=== PATIENT | female | born 1970 | race Caucasian/White ===

== ENCOUNTER 2020-05-10 16:47 | Emergency (ER) | payer OTHER ==
[2020-05-10 17:08] VITALS: BP 162/94; PULSE 107; O2SAT 100
[2020-05-10] MEDS ORDERED: TORAdol 30 mg Injection IM ONE (17:17)
[2020-05-10] MEDS ORDERED: NORCO 5/325 MG PO ONE ×2 (17:17→19:04)
[2020-05-10] MEDS ORDERED: TORAdol 30 mg Injection ONE (17:22)
[2020-05-10] MEDS ORDERED: NORCO 5/325 MG ONE ×2 (17:23→19:06)
--- NOTE | 2020-05-10 18:18 | ERPHSYRPT ---
- History of Present Illness Source: patient Exam Limitations: other (Poor historian) Patient Subjective Stated Complaint: My fingers got caught in a crossbow string when shooting it less than an hour ago Triage Nursing Assessment: Aaox3, ambualtory, tearful, States got fingers caught in crossbow string when shooting it less than an hour ago. Bleeding from distal end of left 3rd finger noted. C/o pain to 1-4 fingers left hand. Denies other injuries. All rings removed from fingers. Some swelling, abrasions, and bruising noted to fingers. Distal neuro/vascular intact. Physician History: 49 yo wf complains of L hand digits 2-4 pain after getting caught in crossbow. Pt is R handed and denies other/previous injury. Tetanus is UTD. Occurred: just prior to arrival Method of Injury: direct blow Quality: constant Severity of Pain-Max: severe Severity of Pain-Current: severe Extremities Pain Location: 2nd finger: left, 3rd finger: left, 4th finger: left Modifying Factors: Improves With: movement Associated Symptoms: none Hx Tetanus, Diphtheria Vaccination/Date Given: Yes Hx Influenza Vaccination/Date Given: Yes Travel Risk - International Travel Have you traveled outside of the country in past 3 weeks: No - Coronavirus Screening Are you exhibiting any of the following symptoms?: No Close contact with a COVID-19 positive Pt in past 14-21 Days: No - Review of Systems Constitutional: No Symptoms Eyes: No Symptoms Ears, Nose, & Throat: No Symptoms Respiratory: No Symptoms Cardiac: No Symptoms Abdominal/Gastrointestinal: No Symptoms Genitourinary Symptoms: No Symptoms Skin: No Symptoms Neurological: No Symptoms Psychological: No Symptoms Endocrine: No Symptoms Hematologic/Lymphatic: No Symptoms Immunological/Allergic: No Symptoms - Past Medical History Neurological History: Migraines Cardiac History: High Cholesterol Respiratory History: COPD Endocrine Medical History: No Pertinent History Musculoskeletal History: Arthritis, Fibromyalgia - Past Surgical History Other Surgical History: breast biopsies, lap quinten, hysterectomy - Social History Smoking Status: Never smoker Patient Lives Alone: No Significant Family History: no pertinent family hx - Female History Hx Now: No - Nursing Vital Signs Nursing Vital Signs: Initial Vital Signs Temperature 97.9 F 05/10/20 16:57 Pulse Rate 107 H 05/10/20 16:57 Respiratory Rate 20 05/10/20 16:57 Blood Pressure 162/94 05/10/20 16:57 O2 Sat by Pulse Oximetry 100 05/10/20 16:57 Pain Scale Pain Intensity 5 - Physical Exam General Appearance: no apparent distress (In pain) Eyes, Ears, Nose, Throat Exam: normal ENT inspection, TMs normal, pharynx normal Neck Exam: normal inspection, non-tender, supple, full range of motion, No Brudzinski, No Kernig's, No meningismus Cardiovascular/Respiratory Exam: normal breath sounds, regular rate/rhythm, heart sounds normal Abdominal Exam: non-tender, soft Back Exam: normal inspection, normal range of motion, No vertebral tenderness Shoulder Exam: normal inspection, non-tender, no evidence of injury, swelling Elbow/Forearm Exam: normal inspection, non-tender Wrist Exam: normal inspection, non-tender, no evidence of injury Hand Exam: abrasions (Pt has dorsal abrasions of digits 2-4 w ttp most marked on 3rd digit/Mild edema of 3rd digit/Good distal capillary return and sensation of all digits) Neuro/Tendon Exam: normal sensation, normal motor functions, normal tendon functions, responds to pain, no evidence tendon injury Mental Status Exam: alert, oriented x 3, cooperative Skin Exam: normal color, warm, dry SpO2 Interpretation: normal SpO2: 100 O2 Delivery: Room Air - Course Nursing assessment & vital signs reviewed: Yes - Radiology Exams Hand X-ray Interpretation: Interpreted by me (L 3rd digit distal avulsion fx) Ordered Tests: Active Orders 24 hr Category Date Time Status HAND (MINIMUM 3 VIEWS) Stat Exams 05/10/20 17:46 Taken Medication Summary Discontinued Medications Generic Name Dose Route Start Last Admin Trade Name Pascale PRN Reason Stop Dose Admin Hydrocodone Bitart/Acetaminophen 2 tab 05/10/20 17:17 05/10/20 17:25 Butler 5/325 Mg PO 05/10/20 17:18 2 tab STAT ONE Administration Hydrocodone Bitart/Acetaminophen Confirm 05/10/20 17:23 Butler 5/325 Mg Administered 05/10/20 17:24 Dose 2 tab .ROUTE .STK-MED ONE Hydrocodone Bitart/Acetaminophen 2 tab 05/10/20 19:04 05/10/20 19:07 Butler 5/325 Mg PO 05/10/20 19:05 2 tab SENT HOME W/ PATIENT ONE Administration Hydrocodone Bitart/Acetaminophen Confirm 05/10/20 19:06 Butler 5/325 Mg Administered 05/10/20 19:07 Dose 2 tab .ROUTE .STK-MED ONE Hydromorphone HCl 1 mg 05/10/20 18:39 05/10/20 18:51 Hydromorphone 1 Mg/Ml Injection IM 05/10/20 18:40 1 mg STAT ONE Administration Hydromorphone HCl Confirm 05/10/20 18:50 Hydromorphone 1 Mg/Ml Injection Administered 05/10/20 18:51 Dose 1 mg .ROUTE .STK-MED ONE Ketorolac Tromethamine 60 mg 05/10/20 17:17 05/10/20 17:25 Toradol 30 Mg Injection IM 05/10/20 17:18 60 mg STAT ONE Administration Ketorolac Tromethamine Confirm 05/10/20 17:22 Toradol 30 Mg Injection Administered 05/10/20 17:23 Dose 30 mg .ROUTE .STK-MED ONE - Progress Progress: improved Progress Note: 05/10/20 18:42 60mg IM Toradol/Butler 5 po x2 Long aluminium splint L 3rd digit per nursing/NVI 1mg IM Dilaudid Abrasions cleansed w Hibiclens per nursing Counseled pt/family regarding: need for follow-up, rad results - Departure Departure Disposition: Home Clinical Impression: Fracture, finger, distal phalanx Condition: Stable Critical Care Time: No Referrals: ROBERT ROSENTHAL NP [Primary Care Provider] - ANGEL - AASHISH SUAREZ NP [NON-STAFF PHY W/O PRIVILEGES] - Instructions: Finger Fracture (DC) Additional Instructions: Ice for 12-24 hours Pain meds as needed Follow up in the orthopedic clinic 8-10:00 M-Fr Prescriptions: Hydrocodone/Acetaminophen [Hydrocodone-Acetamin 10-325 mg] 1 each PO Q4H PRN PRN #6 tablet MDD 3 tabs PRN Reason: Pain Hydrocodone/Acetaminophen [Hydrocodone-Acetamin 10-325 mg^^^] 1 each PO Q4HPRN PRN #7 tablet MDD 3 tabs per day PRN Reason: Pain Ketorolac Tromethamine [Toradol] 10 mg PO TID PRN #10 tablet
[2020-05-10] MEDS ORDERED: Hydromorphone 1 mg/ml Injection IM ONE (18:39)
[2020-05-10] MEDS ORDERED: Hydromorphone 1 mg/ml Injection ONE (18:50)
--- NOTE | 2020-05-11 08:58 | XRAY ---
Indication: Pain following injury. Comparison: None 3 view left hand demonstrates minimal degenerative changes of all IP joints and mild 3rd finger soft tissue swelling/edema. No other bony, articular, or soft tissue abnormalities.
== END 2020-05-10 19:10 | disposition home or self-care (01) ==
LOC: ED 16:47
DX: S62.633A Displaced fracture of distal phalanx of left middle finger, initial encounter for closed fracture (principal); W23.0XXA Caught, crushed, jammed, or pinched between moving objects, initial encounter; M79.645 Pain in left finger(s); S60.413A Abrasion of left middle finger, initial encounter; S60.042A Contusion of left ring finger without damage to nail, initial encounter; J44.9 Chronic obstructive pulmonary disease, unspecified
CPT/HCPCS: 73130; 96372; 99284; J1170; J1885; A9270-GY

== ENCOUNTER 2020-11-17 15:38 | Emergency (ER) | payer OTHER ==
[2020-11-17 16:37] LABS: Absolute Neutrophil Ct (ANC) 2.87 (1.4-6.9); BASOPHIL % 0.3 % (0.0-0.4); Basophil (Absolute #) 0.02 (0-0.4); Eosinophil % 1.4 % (0.00-5.0); Eosinophil (Absolute #) 0.08 (0-0.5); Hematocrit 38.4 % (35-47); Hemoglobin 13.1 gm/dl (12.0-16.0); Lymphocytes % 41.5 % (24.0-44.0); Mean Cell Volume 92.8 fl (78-100); Mean Corpuscular Hemoglobin 31.6 pg (26-32); Mean Corpuscular Hgb Concent. 34.1 g/dl (32-36); Monocyte (Absolute #) 0.41 (0.0-1.3); Monocytes % 7.1 % (0.0-12.0); Neutrophil % 49.7 % (36.0-66.0); Platelet Count 236 K/mm3 (150-450); Red Blood Count 4.14 M/mm3 (4.1-5.4); Red Cell Distribution Width 12.3 % (11.5-14.0); White Blood Count 5.8 K/mm3 (4.0-10.5)
[2020-11-17 16:56] LABS: ALBUMIN 4.7 g/dL (3.5-5.0); ALKALINE PHOSPHATASE 94 U/L (38-126); ANION GAP 14.9 MEQ/L (5-15); BLOOD UREA NITROGEN 14 mg/dL (7-17); CHLORIDE 105 mmol/L (98-107); Calcium 9.7 mg/dL (8.4-10.2); Carbon Dioxide 23 mmol/L (22-30); Creatinine 1 0.56 mg/dL (0.52-1.04); EST GLOMERULAR FILTRATION RATE > 60.0 ML/MIN; ETHYL ALCOHOL < 10 mg/dL (0-10); Glucose 111 mg/dL (74-106); Potassium 3.7 mmol/L (3.5-5.1); SGOT/AST 26 U/L (14-36); SGPT/ALT 19 U/L (0-35); SODIUM 139 mmol/L (137-145); Total Protein 7.6 g/dL (6.3-8.2)
--- NOTE | 2020-11-17 17:00 | XRAY ---
Indication: Lethargy. Comparison: None Portable chest demonstrates probable 1.5 cm right apical calcified granuloma. Remaining heart, lungs, and bony thorax normal.
[2020-11-17 17:46] LABS: Appearance SLIGHTLY CLOUDY (CLEAR); Bilirubin NEGATIVE (NEGATIVE); Blood NEGATIVE Ery/ul (0-5); Epithelial Cells RARE /HPF (FEW); Glucose NEGATIVE (NEGATIVE); Ketones NEGATIVE (NEGATIVE); Leukocyte Esterase NEGATIVE (NEGATIVE); Mucus SLIGHT /HPF (NEGATIVE); Nitrite NEGATIVE (NEGATIVE); Protein,Urine Dip NEGATIVE (Negative); Urobilinogen 4 mg/dL (0-1)
--- NOTE | 2020-11-17 17:54 | ERPHSYRPT ---
- History of Present Illness Source: patient Exam Limitations: other (Very poor historian) Patient Subjective Stated Complaint: Pt states "I am a little dizzy, I am falling asleep and I slept well last night, I just do not feel right." Triage Nursing Assessment: Pt presented alert and oriented X 3, skin pwd. pt ambulates with an upright slightly unsteady gait. Physician History: 49 yo wf w 1 days h/o dizziness/confusion/lethargy/mild headache wo focal weakness/new meds/otalgia/fever/N/V/D/cough/dysuria/hematuria. Pt takes Gabapentin/Lena/Buprenorphine patch for chronic pain. Timing/Duration: yesterday Severity: mild Deficits: no difficulties, weak Baseline/Normal Cognition: alert oriented x 3 Current Cognition: alert oriented x 3 Baseline Gait: walks w/o assistance Associated Symptoms: confusion, weakness, ringing in ears, headache, No fatigue, No fever, No chills, No loss of consciousness, No nausea, No vomiting, No insomnia, No muscle spasms, No numbness/tingling in legs/feet, No paresthesia, No seizures, No slurred speech, No trouble walking, No vision changes, No chest pain Allergies/Adverse Reactions: acetaminophen [From Darvocet-N] Allergy (Severe, Verified 11/17/20 15:57) Swelling lamotrigine [From Lamictal] Allergy (Severe, Verified 11/17/20 15:57) Swelling Penicillins Allergy (Severe, Verified 11/17/20 15:56) Swelling propoxyphene [From Darvocet-N] Allergy (Severe, Verified 11/17/20 15:57) Swelling Home Medications: Bupronorphine 20 mg TRANSTRAC WEEKLY 11/17/20 [History] Hx Tetanus, Diphtheria Vaccination/Date Given: Yes Hx Influenza Vaccination/Date Given: Yes Hx Pneumococcal Vaccination/Date Given: No Immunizations Up to Date: Yes Travel Risk - International Travel Have you traveled outside of the country in past 3 weeks: No - Coronavirus Screening Are you exhibiting any of the following symptoms?: No Close contact with a COVID-19 positive Pt in past 14-21 Days: No - Vaccine Status Have you recieved a Covid-19 vaccination: Yes Beam Dyer Recessed Vat: Spritz - Vaccination Dates Date of 2cond Vaccination (if applicable): 05/2020 - Review of Systems Constitutional: No Symptoms, Weakness Eyes: No Symptoms Ears, Nose, & Throat: No Symptoms Respiratory: No Symptoms Cardiac: No Symptoms Abdominal/Gastrointestinal: No Symptoms Genitourinary Symptoms: No Symptoms Musculoskeletal: No Symptoms Skin: No Symptoms Neurological: Dizziness, Headache, Lethargy, No Focal Weakness, No Gait Changes, No Irritability, No Paralysis, No Parasthesia, No Seizure, No Sensory Changes, No Speech Changes, No Tics, No Tremors, No Vertigo Psychological: No Symptoms Endocrine: No Symptoms Hematologic/Lymphatic: No Symptoms Immunological/Allergic: No Symptoms - Past Medical History Pertinent Past Medical History: Yes Neurological History: Migraines Cardiac History: High Cholesterol Respiratory History: COPD Endocrine Medical History: No Pertinent History Musculoskeletal History: Arthritis, Fibromyalgia - Past Surgical History Past Surgical History: Yes Other Surgical History: breast biopsies, lap quinten, hysterectomy - Social History Smoking Status: Never smoker Exposure to second hand smoke: Yes Patient Lives Alone: No Significant Family History: no pertinent family hx - Female History Hx Last Menstrual Period: hysterectomy Hx Now: No - Nursing Vital Signs Nursing Vital Signs: Initial Vital Signs Temperature 97.5 F 11/17/20 15:51 Pulse Rate 80 11/17/20 15:51 Respiratory Rate 22 11/17/20 15:51 Blood Pressure 142/86 11/17/20 15:51 O2 Sat by Pulse Oximetry 99 11/17/20 15:51 Pain Scale Pain Intensity 5 Mildly hypertensive - Emeterio Coma Scale Best Eye Response ([place]): (4) open spontaneously Best Verbal Response ([place]): (4) confused conversation Best Motor Response ([place]): (6) obeys commands Emeterio Total: 14 - Physical Exam General Appearance: no apparent distress Eye Exam: bilateral eye: normal inspection, PERRL, EOMI Ears, Nose, Throat Exam: normal ENT inspection, TMs normal, pharynx normal, moist mucous membranes Neck Exam: normal inspection, non-tender, supple, full range of motion, No meningismus, No mass, No Brudzinski, No Kernig's, No carotid bruit Respiratory: normal breath sounds, lungs clear, airway intact, No respiratory distress Cardiovascular: regular rate/rhythm, normal heart sounds, normal peripheral pulses, No murmur Gastrointestinal: soft, normal bowel sounds, No tenderness Back Exam: normal inspection, normal range of motion, No CVA tenderness Extremity Exam: normal inspection, normal range of motion Peripheral Pulses: carotid (R): 2+, carotid (L): 2+ Mental Status: alert, oriented x 3 (Does appear to be confused at times) registered radiologic technologist Exam: normal hearing, normal speech, PERRL, abnormal eye position, abnormal gag reflex Coordination/Gait: normal finger to nose, normal gait, normal cerebellar function Motor/Sensory: no motor deficit, no sensory deficit, no pronator drift, negative Babinski's sign DTR: bicep (R): 2+, bicep (L): 2+ Skin Exam: normal color, warm, dry SpO2 Interpretation: normal SpO2: 99 O2 Delivery: Room Air - Course Nursing assessment & vital signs reviewed: Yes - CT Exams Head CT Interpretation: Discussed w/radiologist (NAD/CTA head wnl) Other CT Interpretation: Discussed w/radiologist (CTA neck-minimal L carotid bulb calcification) Ordered Tests: Active Orders 24 hr Category Date Time Status IV Insertion STAT Care 11/17/20 16:07 Completed CHEST 1 VIEW (PORTABLE) Stat Exams 11/17/20 16:[address] ANGIOGRAPHY NECK [CT] Stat Exams 11/17/20 16:15 Taken CTA HEAD W AND/OR WO CONTRAST [CT] Stat Exams 11/17/20 16:09 Taken HEAD WITHOUT CONTRAST [CT] Stat Exams 11/17/20 16:08 Taken CBC W DIFF Stat Lab 11/17/20 16:07 Completed CMP Stat Lab 11/17/20 16:29 Completed ETHYL ALCOHOL Stat Lab 11/17/20 16:29 Completed TROPONIN Q3H Lab 11/17/20 16:29 Completed UA W/RFX UR CULTURE Stat Lab 11/17/20 17:22 Completed Urine Triage Profile Stat Lab 11/17/20 17:22 Completed Lab/Rad Data: Laboratory Result Diagrams 11/17/20 16:07 11/17/20 16:29 Laboratory Results 11/17/20 11/17/20 11/17/20 Range/Units 17:22 17:22 16:29 WBC (4.0-10.5) K/mm3 RBC (4.1-5.4) M/mm3 Hgb (12.0-16.0) gm/dl Hct (35-47) % MCV (78-100) fl MCH (26-32) pg MCHC (32-36) g/dl RDW (11.5-14.0) % Plt Count (150-450) K/mm3 MPV (7.5-11.0) fl Gran % (36.0-66.0) % Eos # (Auto) (0-0.5) Absolute Lymphs (auto) (1.0-4.6) Absolute Monos (auto) (0.0-1.3) Lymphocytes % (24.0-44.0) % Monocytes % (0.0-12.0) % Eosinophils % (0.00-5.0) % Basophils % (0.0-0.4) % Absolute Granulocytes (1.4-6.9) Basophils # (0-0.4) Sodium (137-145) mmol/L Potassium (3.5-5.1) mmol/L Chloride (98-107) mmol/L Carbon Dioxide (22-30) mmol/L Anion Gap (5-15) MEQ/L BUN (7-17) mg/dL Creatinine (0.52-1.04) mg/dL Estimated GFR ML/MIN Glucose (74-106) mg/dL Calcium (8.4-10.2) mg/dL Total Bilirubin (0.2-1.3) mg/dL AST (14-36) U/L ALT (0-35) U/L Alkaline Phosphatase (38-126) U/L Troponin I < 0.012 (0.000-0.034) ng/mL Serum Total Protein (6.3-8.2) g/dL Albumin (3.5-5.0) g/dL Urine Color YELLOW (YELLOW) Urine Appearance SLIGHTLY CLOUDY (CLEAR) Urine pH 6.0 (5-6) Ur Specific [place] 1.020 (1.005-1.025) Urine Protein NEGATIVE (Negative) Urine Ketones NEGATIVE (NEGATIVE) Urine Blood NEGATIVE (0-5) Zachary/ul Urine Nitrite NEGATIVE (NEGATIVE) Urine Bilirubin NEGATIVE (NEGATIVE) Urine Urobilinogen 4 (0-1) mg/dL Ur Leukocyte Esterase NEGATIVE (NEGATIVE) Urine WBC (Auto) NONE (0-5) /HPF Urine RBC (Auto) NONE (0-2) /HPF U Epithel Cells (Auto) RARE (FEW) /HPF Urine Bacteria (Auto) NONE (NEGATIVE) /HPF Calcium Oxalate Crystal 3-5 (NEGATIVE) /HPF Urine Mucus (Auto) SLIGHT (NEGATIVE) /HPF Urine Culture Reflexed NO (NO) Urine Glucose NEGATIVE (NEGATIVE) mg/dL Urine Opiates Level POSITIVE (NEGATIVE) Ur Methadone NEGATIVE (NEGATIVE) Urine Barbiturates NEGATIVE (NEGATIVE) Ur Phencyclidine (PCP) NEGATIVE (NEGATIVE) Urine Amphetamine NEGATIVE (NEGATIVE) U Benzodiazepine Level NEGATIVE (NEGATIVE) Urine Cocaine NEGATIVE (NEGATIVE) Urine Marijuana (THC) NEGATIVE (NEGATIVE) Ethyl Alcohol (0-10) mg/dL 11/17/20 11/17/20 Range/Units 16:29 16:07 WBC 5.8 (4.0-10.5) K/mm3 RBC 4.14 (4.1-5.4) M/mm3 Hgb 13.1 (12.0-16.0) gm/dl Hct 38.4 (35-47) % MCV 92.8 (78-100) fl MCH 31.6 (26-32) pg MCHC 34.1 (32-36) g/dl RDW 12.3 (11.5-14.0) % Plt Count 236 (150-450) K/mm3 MPV 8.0 (7.5-11.0) fl Gran % 49.7 (36.0-66.0) % Eos # (Auto) 0.08 (0-0.5) Absolute Lymphs (auto) 2.40 (1.0-4.6) Absolute Monos (auto) 0.41 (0.0-1.3) Lymphocytes % 41.5 (24.0-44.0) % Monocytes % 7.1 (0.0-12.0) % Eosinophils % 1.4 (0.00-5.0) % Basophils % 0.3 (0.0-0.4) % Absolute Granulocytes 2.87 (1.4-6.9) Basophils # 0.02 (0-0.4) Sodium 139 (137-145) mmol/L Potassium 3.7 (3.5-5.1) mmol/L Chloride 105 (98-107) mmol/L Carbon Dioxide 23 (22-30) mmol/L Anion Gap 14.9 (5-15) MEQ/L BUN 14 (7-17) mg/dL Creatinine 0.56 (0.52-1.04) mg/dL Estimated GFR > 60.0 ML/MIN Glucose 111 H (74-106) mg/dL Calcium 9.7 (8.4-10.2) mg/dL Total Bilirubin 0.80 (0.2-1.3) mg/dL AST 26 (14-36) U/L ALT 19 (0-35) U/L Alkaline Phosphatase 94 (38-126) U/L Troponin I (0.000-0.034) ng/mL Serum Total Protein 7.6 (6.3-8.2) g/dL Albumin 4.7 (3.5-5.0) g/dL Urine Color (YELLOW) Urine Appearance (CLEAR) Urine pH (5-6) Ur Specific [place] (1.005-1.025) Urine Protein (Negative) Urine Ketones (NEGATIVE) Urine Blood (0-5) Zachary/ul Urine Nitrite (NEGATIVE) Urine Bilirubin (NEGATIVE) Urine Urobilinogen (0-1) mg/dL Ur Leukocyte Esterase (NEGATIVE) Urine WBC (Auto) (0-5) /HPF Urine RBC (Auto) (0-2) /HPF U Epithel Cells (Auto) (FEW) /HPF Urine Bacteria (Auto) (NEGATIVE) /HPF Calcium Oxalate Crystal (NEGATIVE) /HPF Urine Mucus (Auto) (NEGATIVE) /HPF Urine Culture Reflexed (NO) Urine Glucose (NEGATIVE) mg/dL Urine Opiates Level (NEGATIVE) Ur Methadone (NEGATIVE) Urine Barbiturates (NEGATIVE) Ur Phencyclidine (PCP) (NEGATIVE) Urine Amphetamine (NEGATIVE) U Benzodiazepine Level (NEGATIVE) Urine Cocaine (NEGATIVE) Urine Marijuana (THC) (NEGATIVE) Ethyl Alcohol < 10 (0-10) mg/dL - Progress Progress Note: 11/17/20 18:52 Dizziness most likely due to polypharmacy Counseled pt/family regarding: lab results, diagnosis, need for follow-up, rad results - Departure Departure Disposition: Home Clinical Impression: Dizziness Condition: Stable Critical Care Time: No Referrals: ROBERT ROSENTHAL NP [Primary Care Provider] - Instructions: Dizziness, Nonvertigo, (DC) Additional Instructions: Follow up with your family MD in 1-2 days Meclizine as needed Return to ER for focal weakness/Worsening dizziness Prescriptions: Meclizine HCl 25 mg [Antivert 25 mg] 25 mg PO Q6-8HPRN PRN #10 tablet PRN Reason: Dizziness
[2020-11-17 17:58] LABS: Amphetamine,Urine NEGATIVE (NEGATIVE); Barbiturate,Urine NEGATIVE (NEGATIVE); Benzodiazepine,Urine NEGATIVE (NEGATIVE); Cocaine,Urine NEGATIVE (NEGATIVE); Methadone,Urine NEGATIVE (NEGATIVE); Opiate,Urine POSITIVE (NEGATIVE); PCP,Urine NEGATIVE (NEGATIVE); THC,Urine NEGATIVE (NEGATIVE)
[2020-11-17 18:50] VITALS: O2SAT 99
[2020-11-17 19:37] VITALS: BP 144/92; PULSE 85
--- NOTE | 2020-11-18 08:30 | XRAY ---
Indication: Altered mental status. Confusion. Dizziness. Multiple contiguous axial images obtained through the head without contrast. Comparison: None Normal appearing brain parenchyma, ventricles, and bony calvarium for patient's age. Visualized paranasal sinuses and mastoid air cells are clear. Impression: Normal CT head without contrast exam.
--- NOTE | 2020-11-18 08:34 | XRAY ---
Indication: Altered mental status. Confusion. Dizziness. Two-dimensional contrast-enhanced CTA neck performed using 100 cc Isovue 370 contrast. Two-dimensional sagittal and coronal reformatted images obtained. Additional 3-dimensional reformatted images obtained using separate workstation. Comparison: None Visualized aortic arch is normal in course and caliber without aneurysm/dissection. Normal branching right brachiocephalic, left common carotid, and left subclavian arteries. Very minimal arteriosclerotic calcifications origin of left common carotid and subclavian arteries. Right carotid circulation demonstrates normal CTA appearance to the common carotid, carotid bulb, internal carotid, and external carotid arteries. Left carotid circulation demonstrates very minimal arteriosclerotic calcifications at the origin of the internal carotid artery. Remaining common carotid, carotid bulb, and external carotid arteries are normal in CTA appearance. Vertebral arteries are bilaterally symmetric without critical stenosis, obstruction, or AV malformation. Visualized soft tissues demonstrates a few subcentimeter cervical and submandibular nodes bilaterally. No pathologic lymphadenopathy. Parotid and submandibular glands are bilaterally symmetric. Thyroid gland enhances homogeneously. Supra and infraglottic airway are widely patent. Lung apices demonstrates pulmonary emphysema and incompletely visualized right upper lobe calcified granuloma. Osseous structures intact. Impression: 1. Very minimal arteriosclerotic calcifications origin of left common carotid, left subclavian, and left internal carotid arteries. 2. Remaining CTA neck is negative. 3. Incidental pulmonary emphysema.
--- NOTE | 2020-11-18 08:38 | XRAY ---
Indication: Altered mental status. Confusion. Dizziness. Two-dimensional contrast-enhanced CTA head performed using 100 cc Isovue 370 contrast. Two-dimensional sagittal and coronal reformatted images obtained. Additional 3-dimensional reformatted images obtained using separate workstation. Comparison: None Distal internal carotid arteries are bilaterally symmetric without critical stenosis/obstruction. Normal carotid terminus with normal branching A1 and M1 segments bilaterally. More distal anterior cerebral, middle cerebral, anterior communicating, and posterior communicating arteries are normal in CTA appearance. Posterior circulation demonstrates normal CTA appearance to the basilar, left/right posterior cerebral, left/right superior cerebellar, and left/right anterior inferior cerebellar arteries. Venous system/sinuses are unremarkable. No abnormal enhancing intra or extra-axial mass. Impression: Negative CTA head.
== END 2020-11-17 19:37 | disposition home or self-care (01) ==
LOC: ED 15:38
DX: R42 Dizziness and giddiness (principal); R41.0 Disorientation, unspecified; R53.83 Other fatigue; R51.9 Headache, unspecified; R50.9 Fever, unspecified; R05 Cough; Z79.899 Other long term (current) drug therapy; E78.00 Pure hypercholesterolemia, unspecified; J44.9 Chronic obstructive pulmonary disease, unspecified
CPT/HCPCS: 36000; 36415; 70450; 70496; 70498; 71045; 80053; 80307; 81001; 84484; 85025; 99284; G0480

== ENCOUNTER 2021-12-07 16:59 | Emergency (ER) | payer OTHER ==
[2021-12-07 17:06] VITALS: BP 141/88; O2SAT 98
[2021-12-07] MEDS ORDERED: Adacel Vial IM ONE (17:27)
[2021-12-07] MEDS: Adacel Vial IM ONE (17:28)
--- NOTE | 2021-12-07 17:40 | ERPHSYRPT ---
- History of Present Illness Source: patient Exam Limitations: no limitations Patient Subjective Stated Complaint: PT states "I was walking into [place] and I tripped over the curb and fell. My neck and hips hurt so bad. My right leg and ankle hurt too." Triage Nursing Assessment: Pt presented alert and orietned X3, skin pwd. PT has skin tear on right knee and contuson on left knee. PT ambulated at scene. PT has c collar in place. Pt pt CSM X 4. PT moaning with each move. Physician History: 51 yo wf tripped and fell in front of a local store before arrival. Pt complains of cervical pain/T&L-spine pain/B hip pain/B knee pain. C-collar placed by nursing upon arrival. Pt states that pain is moderate to severe. She denies head injury/AUGUSTE/LOC. Occurred: just prior to arrival Reason for Fall: tripped Injuries/Pain Location: neck, back, lower extremity (B hips/knees) Loss of Consciousness: no loss of consciousness Quality: aching, throbbing Severity of Pain-Max: severe Severity of Pain-Current: moderate Modifying Factors: Improves With: movement Associated Symptoms (Fall): denies symptoms, back pain Allergies/Adverse Reactions: acetaminophen [From Darvocet-N] Allergy (Severe, Verified 11/17/20 15:57) Swelling lamotrigine [From Lamictal] Allergy (Severe, Verified 11/17/20 15:57) Swelling Penicillins Allergy (Severe, Verified 11/17/20 15:56) Swelling propoxyphene [From Darvocet-N] Allergy (Severe, Verified 11/17/20 15:57) Swelling Home Medications: Bupronorphine 20 mg TRANSTRAC WEEKLY 11/17/20 [History] Gabapentin 400 mg PO DAILY 12/07/21 [History] Montelukast Sodium 10 mg [Singulair 10 MG] 10 mg PO DAILY 12/07/21 [History] Tiotropium [place] [Spiriva Respimat] 1 puff IH DAILY 12/07/21 [History] Hx Tetanus, Diphtheria Vaccination/Date Given: Yes Hx Influenza Vaccination/Date Given: Yes Hx Pneumococcal Vaccination/Date Given: No Immunizations Up to Date: Yes Travel Risk - International Travel Have you traveled outside of the country in past 3 weeks: No - Coronavirus Screening Are you exhibiting any of the following symptoms?: No Close contact with a COVID-19 positive Pt in past 14-21 Days: No - Vaccine Status Have you recieved a Covid-19 vaccination: Yes Senior Linux Systems Engineer: [employer] - Vaccination Dates Date of 2cond Vaccination (if applicable): 05/2020 - Review of Systems Constitutional: No Symptoms Eyes: No Symptoms Ears, Nose, & Throat: No Symptoms Respiratory: No Symptoms Cardiac: No Symptoms Abdominal/Gastrointestinal: No Symptoms Genitourinary Symptoms: No Symptoms Skin: No Symptoms Psychological: No Symptoms Endocrine: No Symptoms Hematologic/Lymphatic: Easy Bruising Immunological/Allergic: No Symptoms - Past Medical History Pertinent Past Medical History: Yes Neurological History: Migraines, Other Cardiac History: High Cholesterol Respiratory History: Bronchitis, COPD, Emphysema Endocrine Medical History: No Pertinent History Musculoskeletal History: Arthritis, Degenerative Disk Disease, Fibromyalgia, Fractures, Other Other Medical History: Hx of Muscle Spasms (back), Bursitis (L Shoulder) - Past Surgical History Past Surgical History: Yes Other Surgical History: breast biopsies, lap quinten, hysterectomy - Social History Smoking Status: Former smoker Exposure to second hand smoke: Yes Drug Use: none Patient Lives Alone: No Significant Family History: no pertinent family hx - Nursing Vital Signs Nursing Vital Signs: Initial Vital Signs Temperature 97.3 F 12/07/21 17:00 Pulse Rate 80 12/07/21 17:00 Respiratory Rate 20 12/07/21 17:00 Blood Pressure 141/88 12/07/21 17:00 O2 Sat by Pulse Oximetry 98 12/07/21 17:00 Pain Scale Pain Intensity 6 Hypertensive - Emeterio Coma Score Best Eye Response (Emeterio): (4) open spontaneously Best Verbal Response (Lyle): (5) oriented Best Motor Response (Emeterio): (6) obeys commands Lyle Total: 15 - Physical Exam General Appearance: no apparent distress (In pain) Head Injury: no evidence of injury Eye Exam: PERRL/EOMI, eyes nml inspection ENT Exam: airway nml, nml ext.inspection, No evidence of ENT injury, No dental injury, No clear fluid (ears), No clear fluid (nose) Neck Exam: supple, trachea midline, c-collar in place (C-spine TTP) Respiratory/Chest Exam: normal breath sounds, No chest tenderness, No respiratory distress Cardiovascular Exam: normal heart sounds, regular rate/rhythm, normal peripheral pulses, No murmur Gastrointestinal Exam: soft, normal bowel sounds, No tenderness Back Exam: vertebral tenderness (+Mid T and L-spine TTP) Extremity Exam: pelvis stable (B hips TTP(No shortening or external rotation B)/B knees TTP/Abrasion R pre-patellar area) Peripheral Pulses: carotid (R): 2+, carotid (L): 2+ Neurologic Exam: alert, oriented x 3, cooperative, director of strategic partnerships II-XII nml as tested, normal mood/affect, sensation nml Skin Exam: normal color, warm, No dry SpO2 Interpretation: normal SpO2: 98 O2 Delivery: Room Air - Course Nursing assessment & vital signs reviewed: Yes - Radiology Exams Knee X-ray Interpretation: Interpreted by me (B knees neg per ER read) - CT Exams Chest CT Interpretation: Discussed w/radiologist (Nothing acute) Abdomen/Pelvis CT Interpretation: Discussed w/radiologist (NAD) Cervical Spine CT Interpretation: Discussed w/radiologist (NAD) Ordered Tests: Active Orders 24 hr Category Date Time Status ABDOMEN AND PELVIS W/0 CONTRAS [CT] Stat Exams 12/07/21 17:56 Taken CERVICAL SPINE WO CONTRAST [CT] Stat Exams 12/07/21 17:23 Taken CHEST WITHOUT CONTRAST [CT] Stat Exams 12/07/21 17:23 Taken KNEE (3 VIEWS) Stat Exams 12/07/21 Taken KNEE (3 VIEWS) Stat Exams 12/07/21 18:18 Taken Medication Summary Discontinued Medications Generic Name Dose Route Start Last Admin Trade Name Freq PRN Reason Stop Dose Admin Diphtheria/Tetanus/Acell Pertussis 0.5 ml 12/07/21 17:24 12/07/21 17:28 Tdap --Diph,Pertuss(Acell),Tet Vac/Pf 0.5 Ml Vial IM 12/07/21 17:25 0.5 ml .ONCE ONE Administration Diphtheria/Tetanus/Acell Pertussis Confirm 12/07/21 17:27 Tdap --Diph,Pertuss(Acell),Tet Vac/Pf 0.5 Ml Vial Administered 12/07/21 17:28 Dose 0.5 ml IM .STK-MED ONE Ketorolac Tromethamine 15 mg 12/07/21 18:18 12/07/21 18:33 Ketorolac Tromethamine 30 Mg/Ml Inj IM 12/07/21 18:19 15 mg STAT ONE Administration Ketorolac Tromethamine Confirm 12/07/21 18:33 Ketorolac Tromethamine 30 Mg/Ml Inj Administered 12/07/21 18:34 Dose 30 mg .ROUTE .STK-MED ONE - Progress Progress: improved Progress Note: 12/07/21 19:09 15mg IM Toradol C-collar removed per ER physician 12/07/21 19:11 Tdap given Toradol 15mg IM Counseled pt/family regarding: diagnosis, need for follow-up, rad results - Departure Departure Disposition: Home Clinical Impression: Cervical strain, Lumbar strain, Strain of thoracic back region, Contusion, knee Condition: Stable Critical Care Time: No Referrals: ROBERT ROSENTHAL, PHOTOGRAPHY PROFESSOR [Primary Care Provider] - Follow up/PCP as directed Instructions: Low Back Pain (DC), Contusion (DC), Cervical Muscle Strain (DC) Additional Instructions: Continue with home pain meds Ice contused areas for 12-24 hours Follow up with your family MD or pain specialist for continued pain Return to ER as needed
[2021-12-07] MEDS: TORAdol 30 mg Injection IM ONE (18:33)
[2021-12-07] MEDS ORDERED: TORAdol 30 mg Injection ONE (18:33)
[2021-12-07 19:16] VITALS: PULSE 65
--- NOTE | 2021-12-08 08:38 | XRAY ---
Indication: Pain following fall. Multiple contiguous axial images obtained through the cervical spine. Sagittal and coronal reformatted images obtained. Comparison: None Axial images negative for acute fracture, suspicious bony lesions, or spinal canal stenosis. Minimal C4-C5 degenerative endplate spurring. Mild/moderate multilevel bilateral degenerative facet hypertrophy, right greater than left. Sagittal and coronal reformatted images demonstrates normal alignment with vertebral body heights/disc spaces maintained. No acute compression fracture, subluxation, or jumped facet. Normal appearing craniocervical junction. Visualized noncontrasted soft tissues unremarkable. CT chest reported separately. Impression: Multilevel degenerative changes. Remaining CT cervical spine is negative.
--- NOTE | 2021-12-08 08:40 | XRAY ---
Indication: Shoulder and back pain following fall. Multiple contiguous axial images obtained through the chest without contrast. Comparison: None Lungs demonstrates moderate diffuse pulmonary emphysema, mild bilateral dependent atelectasis, and small right apical calcified granuloma. No suspicious pulmonary mass, infiltrate, effusion, or pneumothorax. Heart not enlarged. Aorta is normal in course and caliber. No pathologic mediastinal lymphadenopathy. Bony thorax intact with minimal degenerative changes throughout the spine. CT abdomen/pelvis reported separately. Impression: 1. Pulmonary emphysema, minimal degenerative spondylosis, and old granulomatous disease. 2. Remaining CT chest without contrast exam is negative.
--- NOTE | 2021-12-08 08:42 | XRAY ---
Indication: Pain following fall. Comparison: None 3 view right knee demonstrates small medial tibial plateau bone island. No other bony, articular, or soft tissue abnormalities.
--- NOTE | 2021-12-08 08:42 | XRAY ---
Indication: Low back and right hip pain following fall. Multiple contiguous axial images obtained through the abdomen and pelvis without contrast. Graft comparison: None CT chest reported separately. Noncontrasted stomach and bowel loops appear nonobstructed. Appendicolith without appendicitis. Previous hysterectomy and cholecystectomy. No free fluid/air. Remaining liver, pancreas, spleen, adrenal glands, kidneys, ureters, bladder, and aorta are unremarkable for noncontrast exam. Osseous structures intact. No ventral or inguinal hernias. Impression: Appendicolith without appendicitis. Remaining CT abdomen/pelvis without contrast exam is negative.
--- NOTE | 2021-12-08 08:42 | XRAY ---
Indication: Pain following fall. Comparison: None 3 view left knee demonstrates minimal medial joint space narrowing. No other bony, articular, or soft tissue abnormalities.
== END 2021-12-07 19:45 | disposition home or self-care (01) ==
LOC: ED 16:59
DX: S16.1XXA Strain of muscle, fascia and tendon at neck level, initial encounter (principal); S39.012A Strain of muscle, fascia and tendon of lower back, initial encounter; S29.012A Strain of muscle and tendon of back wall of thorax, initial encounter; S80.02XA Contusion of left knee, initial encounter; S80.01XA Contusion of right knee, initial encounter; M54.6 Pain in thoracic spine; M25.552 Pain in left hip; M25.551 Pain in right hip; M25.562 Pain in left knee; M25.561 Pain in right knee; W01.0XXA Fall on same level from slipping, tripping and stumbling without subsequent striking against object, initial encounter; Y92.512 Supermarket, store or market as the place of occurrence of the external cause; Z79.899 Other long term (current) drug therapy
CPT/HCPCS: 71250; 72125; 73562; 74176; 90471; 90715; 96372; 99284; J1885

== ENCOUNTER 2024-01-29 13:48 | Emergency (ER) | payer OTHER, SELFPAY ==
[2024-01-29 14:21] VITALS: TEMP 98.6
--- NOTE | 2024-01-29 15:07 | ERPHSYRPT ---
- History of Present Illness Time Seen by Provider: 01/29/24 14:20 Source: patient Exam Limitations: no limitations Patient Subjective Stated Complaint: pt had a macaw bird bite her large toe on the left foot, pt also had her dog cause injury to her right foot and the 4th and 5th toes Triage Nursing Assessment: Pt brought to the ER by her , vitals wnl, rates pain as 6/10, pulses normal, skin n/w/d, pain to right foot and 4th and 5th toes, lacerations/bite to left big toe, doesn't appear to be in any distress Physician History: 53-year-old female presents to the emergency department for evaluation of both feet. Patient's domesticated bird packed her left foot at her great toe. Patient has 3 superficial lacerations to the great toe and its associated webspace. Patient has pain in her right foot fourth and fifth digit. Patient states she injured it about 3 months ago. She had x-rays that were negative. She says her dog stepped on it and is now experiencing an ache. Patient requesting x-ray of her right foot as well. Tetanus is not up-to-date. No other injuries reported. at bedside. Patient otherwise feels well. They voiced no other complaints or concerns at this time. Portions of this note were created with voice recognition technology. There may be grammatical, spelling, punctuation or sound alike errors Timing/Duration: yesterday Severity: moderate Modifying Factors: Improves With: nothing Associated Symptoms: denies symptoms Allergies/Adverse Reactions: acetaminophen [From Darvocet-N] Allergy (Severe, Verified 01/29/24 14:21) Swelling lamotrigine [From Lamictal] Allergy (Severe, Verified 01/29/24 14:21) Swelling Penicillins Allergy (Severe, Verified 01/29/24 14:21) Swelling propoxyphene [From Darvocet-N] Allergy (Severe, Verified 01/29/24 14:21) Swelling Home Medications: Bupronorphine 20 mg TRANSTRAC WEEKLY 11/17/20 [History] Gabapentin 400 mg PO DAILY 12/07/21 [History] Montelukast Sodium 10 mg [Singulair 10 MG] 10 mg PO DAILY 12/07/21 [History] Tiotropium [place] [Spiriva Respimat] 1 puff IH DAILY 12/07/21 [History] Hx Tetanus, Diphtheria Vaccination/Date Given: Yes Hx Influenza Vaccination/Date Given: Yes Hx Pneumococcal Vaccination/Date Given: No Travel Risk - International Travel Have you traveled outside of the country in past 3 weeks: No - Emerging Infectious Disease Are you exhibiting symptoms associated with any current EIDs: No - Review of Systems Constitutional: No Symptoms, No Fever, No Chills Eyes: No Symptoms Ears, Nose, & Throat: No Symptoms Respiratory: No Symptoms, No Cough, No Dyspnea Cardiac: No Symptoms, No Chest Pain, No Edema, No Syncope Abdominal/Gastrointestinal: No Symptoms, No Abdominal Pain, No Nausea, No Vomiting, No Diarrhea Genitourinary Symptoms: No Symptoms, No Dysuria Musculoskeletal: No Symptoms, No Back Pain, No Neck Pain Skin: No Symptoms, No Rash Neurological: No Symptoms, No Dizziness, No Focal Weakness, No Sensory Changes Psychological: No Symptoms Endocrine: No Symptoms Hematologic/Lymphatic: No Symptoms Immunological/Allergic: No Symptoms All Other Systems: Reviewed and Negative - Past Medical History Pertinent Past Medical History: Yes Neurological History: Migraines, Other Cardiac History: High Cholesterol Respiratory History: Bronchitis, COPD, Emphysema Endocrine Medical History: No Pertinent History Musculoskeletal History: Arthritis, Degenerative Disk Disease, Fibromyalgia, Fractures, Other Other Medical History: Hx of Muscle Spasms (back), Bursitis (L Shoulder) - Past Surgical History Past Surgical History: Yes Other Surgical History: breast biopsies, lap quinten, hysterectomy Significant Family History: no pertinent family hx - Female History Hx Now: No - Social History Smoking Status: Former smoker Exposure to second hand smoke: No Drug Use: none Patient Lives Alone: No - Social Determinants of Health Will the patient participate in the screening: Yes Do you worry about a steady place to live?: No Do you have any problems with any of the following?: No known problems In the past 12 months,have you had to go without utilities?: No Transportation Issues: No Has anyone in your support network made you feel unsafe?: No Have you or anyone in your house had to go without enough: No - Nursing Vital Signs Nursing Vital Signs: Initial Vital Signs Temperature 98.6 F 01/29/24 14:12 Pulse Rate 72 01/29/24 14:12 Blood Pressure 122/87 01/29/24 14:12 O2 Sat by Pulse Oximetry 98 01/29/24 14:12 Pain Scale Pain Intensity 7 - Physical Exam General Appearance: no apparent distress, alert Eye Exam: PERRL/EOMI, eyes nml inspection Ears, Nose, Throat Exam: normal ENT inspection, moist mucous membranes Neck Exam: normal inspection, non-tender, supple, full range of motion Respiratory Exam: normal breath sounds, lungs clear, airway intact, No respiratory distress Cardiovascular Exam: regular rate/rhythm, normal heart sounds, normal peripheral pulses Gastrointestinal/Abdomen Exam: soft, normal bowel sounds, No tenderness, No mass Back Exam: normal inspection, normal range of motion, No CVA tenderness, No vertebral tenderness Extremity Exam: normal inspection, normal range of motion, pelvis stable Neurologic Exam: alert, oriented x 3, cooperative, normal mood/affect, nml station & gait, sensation nml, No motor deficits Skin Exam: normal color, warm, dry, No rash Lymphatic Exam: No adenopathy SpO2 Interpretation: normal SpO2: 98 O2 Delivery: Room Air - Course Nursing assessment & vital signs reviewed: Yes - Radiology Exams Foot X-ray Interpretation: Teleradiologist Report (Healing fracture of proximal phalanx fourth digit right foot) Ordered Tests: Active Orders 24 hr Category Date Time Status FOOT (MINIMUM 3 VIEWS) Stat Exams 01/29/24 15:05 Completed Medication Summary Discontinued Medications Generic Name Dose Route Start Last Admin Trade Name Pascale PRN Reason Stop Dose Admin Diphtheria/Tetanus/Acell Pertussis 0.5 ml 01/29/24 15:02 01/29/24 15:14 Tdap --Diph,Pertuss(Acell),Tet Vac/Pf 0.5 Ml Vial IM 01/29/24 15:03 0.5 ml .ONCE ONE Administration Diphtheria/Tetanus/Acell Pertussis Confirm 01/29/24 15:10 Tdap --Diph,Pertuss(Acell),Tet Vac/Pf 0.5 Ml Vial Administered 01/29/24 15:11 Dose 0.5 ml IM .STK-MED ONE Doxycycline Hyclate 100 mg 01/29/24 15:01 01/29/24 15:12 Doxycycline Hyclate 100 Mg Tablet PO 01/29/24 15:02 100 mg STAT ONE Administration Doxycycline Hyclate Confirm 01/29/24 15:10 Doxycycline Hyclate 100 Mg Tablet Administered 01/29/24 15:11 Dose 100 mg .ROUTE .STK-MED ONE Ketorolac Tromethamine 30 mg 01/29/24 15:02 01/29/24 15:16 Ketorolac Tromethamine 30 Mg/Ml Inj IM 01/29/24 15:03 30 mg STAT ONE Administration Ketorolac Tromethamine Confirm 01/29/24 15:09 Ketorolac Tromethamine 30 Mg/Ml Inj Administered 01/29/24 15:10 Dose 30 mg .ROUTE .STK-MED ONE - Progress Progress: improved Progress Note: 53-year-old female resents to our ED for evaluation of a packing injury to her left foot secondary to a domesticated bird. Patient received a dose of doxycycline a prescription for the same for the patient pharmacy. IM Toradol administered for pain control. Additionally patient has had pain in her right foot for 3 months. X-ray reveals a healing fracture of the proximal phalanx midshaft right foot fourth digit. Patient referred to orthopedic clinic for further evaluation. Patient's tetanus was updated. Patient reassessed. Pain improved. No indication for further workup will discharge home. Patient will follow-up with podiatry as indicated. Patient will take medications as prescribed. Patient otherwise feels well states he is ready for discharge she voices no other complaints or concerns at this time. Portions of this note were created with voice recognition technology. There may be grammatical, spelling, punctuation or sound alike errors Complexity of problem addressed is moderate acute complicated no critical care time. Complex of data reviewed and analyzed is moderate. Test ordered chest reviewed results analyzed and correlated clinically with history and physical exam. Risk of complication and or risk of morbidity/mortality of patient management is moderate. Toradol and doxycycline antibiotic forwarded to patient's pharmacy. Vital stable. Time spent to discharge patient is approximately 15 minutes. Plan of care established for shared decision making. No social determinants of health present to impede follow-up. Portions of this note were created with voice recognition technology. There may be grammatical, spelling, punctuation or sound alike errors 01/29/24 16:38 Counseled pt/family regarding: diagnosis, need for follow-up, rad results - Departure Departure Disposition: Home Clinical Impression: Injury of toe, superficial, Right foot pain, Fracture of toe with routine healing Condition: Stable Critical Care Time: No Referrals: MELVINA,ROBERT M., WAREHOUSE INCENTIVE SELECTOR [Primary Care Provider] - Follow up/PCP as directed Additional Instructions: Discharge/Care Plan GERRY BEDOLLA was seen on 01/29/24 in the Emergency Room. The patient was counseled regarding Diagnosis,Lab results, Imaging studies, need for follow up and when to return to the Emergency Room. Prescriptions given: Discharge Note I have spoken with the patient and/or caregivers. I have explained the patient's condition, diagnosis and treatment plan based on the information available to me at this time. I have answered the patient's and/or caregiver's questions and addressed any concerns. The patient and/or caregivers have as good understanding of the patient's diagnosis, condition and treatment plan as can be expected at this point. The vital signs have been stable. The patient's condition is stable and appropriate for discharge from the emergency department. The patient will pursue further outpatient evaluation with the primary care physician or other designated or consulting physician as outlined in the discharge instructions. The patient and/or caregivers are agreeable to this plan of care and follow-up instructions have been explained in detail. The patient and/or caregivers have received these instruction. The patient/and or caregivers are aware that any significant change in condition or worsening of symptoms should prompt an immediate return to this or the closest emergency department or call 911. Prescriptions: Ketorolac Trometh 10 mg Tab [TORAdol 10 MG TABLET] 10 mg PO TID 5 Days #15 tablet Doxycycline Hyclate 100 mg [Vibramycin 100 MG] 100 mg PO BID 7 Days #14 tab Outpatient Orders: Ortho Referral Time Frame: 1 Day, Facility: [facility], Location: [facility]
[2024-01-29] MEDS ORDERED: TORAdol 30 mg Injection ONE (15:09)
[2024-01-29] MEDS ORDERED: Vibramycin 100 MG ONE (15:10)
[2024-01-29] MEDS ORDERED: Adacel Vial IM ONE (15:10)
[2024-01-29 15:11] VITALS: PULSE 70
[2024-01-29] MEDS: Vibramycin 100 MG PO ONE (15:12)
[2024-01-29] MEDS: Adacel Vial IM ONE (15:14)
[2024-01-29] MEDS: TORAdol 30 mg Injection IM ONE (15:16)
[2024-01-29 16:06] VITALS: BP 159/121
--- NOTE | 2024-01-29 16:26 | XRAY ---
Indication: Pain. Comparison: None 3 nonweightbearing views right foot demonstrates nondisplaced healing fracture shaft 4th proximal phalanx. No other bony, articular, or soft tissue abnormalities.
[2024-01-29 16:37] VITALS: O2SAT 98
== END 2024-01-29 16:56 | disposition home or self-care (01) ==
LOC: ED 13:48
DX: S90.932A Unspecified superficial injury of left great toe, initial encounter (principal); W61.11XA Bitten by macaw, initial encounter; S92.511D Displaced fracture of proximal phalanx of right lesser toe(s), subsequent encounter for fracture with routine healing
CPT/HCPCS: 73630; 90471; 90715; 96372; 99283; J1885; A9270-GY